=== PATIENT | female | born 1980 | race African-American/Black ===

== ENCOUNTER 2023-08-12 00:31 | Emergency (ER) | payer OTHER, MEDICAID, SELFPAY ==
[2023-08-12 00:50] VITALS: BP 144/97; PULSE 97; RESP 18; TEMP 36.5; O2SAT 100
--- NOTE | 2023-08-12 01:59 | PC.NURSE ---
please see downtime charting.
--- NOTE | 2023-08-12 02:06 | ED.EYEPROB ---
HPI - Eye Problem General Chief complaint: Eye Problems Stated complaint: R eye pain Time Seen by Provider: 08/12/23 00:53 History of Present Illness HPI Narrative: patient presenting with right eye pain that started today, denies any injury, describes it as intermittent twinges. no visual changes. worse with bright light Related Data Allergies Allergy/AdvReac Type Severity Reaction Status Date / Time No Known Allergies Allergy Unverified 09/16/15 10:55 Review of Systems Review of Systems: All systems reviewed & are unremarkable except as noted in HPI and below Exam Narrative: EXAMINATION OF ORGAN SYSTEMS/BODY AREAS: Constitutional: Vital signs per nursing GENERAL:Appears uncomfortable HEAD: Normal with no signs of head trauma. EYES: painless EOMI, conjunctiva normal, PERRL, no surrounding erythema or swelling ENT: Hearing grossly intact LUNGS: Nonlabored breathing. HEART: [Regular rate and rhythm] ABD: [Soft], [nontender to palpation] EXT: Normal range of motion SKIN: [No rashes or lesions.] NEURO: [Alert and oriented x 3. No gross focal sensory or strength deficits.] PSYCH: Normal affect Course Vital Signs Vital signs: Vital Signs Temperature 97.7 F 08/12/23 00:50 Pulse Rate 97 08/12/23 00:50 Respiratory Rate 18 08/12/23 00:50 Blood Pressure 144/97 H 08/12/23 00:50 Pulse Oximetry 100 08/12/23 00:50 Oxygen Delivery Room Air 08/12/23 00:50 Temperature 97.7 F 08/12/23 00:50 Pulse Rate 97 08/12/23 00:50 Respiratory Rate 18 08/12/23 00:50 Blood Pressure 144/97 H 08/12/23 00:50 Pulse Oximetry 100 08/12/23 00:50 Oxygen Delivery Room Air 08/12/23 00:50 MDM - Eye Problem MDM Narrative Medical decision making narrative: Patient presenting with right eye pain, atraumatic, PERRL, no swelling or pain with extraocular movements, fluorescein stain does not show any abrasion and there is no uptake, IOP both eyes 8. visual acuity intact 20/30 right eye, 20/25 left eye patient slightly more comfortable after tetracaine, I do not feel she needs emergent transfer at this time given her normal intra-ocular pressures, visual acuity, pupillary exam. However I did emphasize that she needs to follow up with an rolloff truck driver today for further evaluation and she is given information for followup. patient agreeable to this plan. Let her know that she needs to return to the ER immediately for any worsening pain or vision changes or anything else concerning Discharge Plan Discharge Clinical Impression: Acute eye pain Patient Disposition: Home, Self-Care Condition: Stable Instructions: Antibiotic Form, Eye Pain (ED) Follow-up/Referrals: Jey,Latanya Rosenthal MD [Primary Care Provider] -
== END 2023-08-12 01:58 | disposition home or self-care (01) ==
PROVIDERS: Emergency Provider Emergency Medicine; PCP Internal Medicine
DX: H57.11 Ocular pain, right eye (principal)
CPT/HCPCS: 99283; A9270